=== PATIENT | female | born 1970 | race Caucasian/White ===

== ENCOUNTER 2020-09-23 22:40 | Observation (INO) ==
[2020-09-24] MEDS ORDERED: Nitroglycerin 0.4 MG TAB.SUBL SL PRN (02:59)
[2020-09-24] MEDS ORDERED: Perflutren Lipid Microsphere 1.3 ML in 0.9 % Sodium Chloride 8.7 ML IVP PRN (03:00)
[2020-09-24] MEDS ORDERED: Naloxone 0.4 MG/ML INJ IVP PRN (03:01)
[2020-09-24] MEDS ORDERED: Acetaminophen 325 MG TABLET PO PRN (03:01)
[2020-09-24] MEDS ORDERED: Ondansetron 4 MG/2 ML VIAL IVP PRN (03:01)
[2020-09-24] MEDS ORDERED: Albuterol 2.5 MG/3 ML NEBULIZER IH PRN (03:46)
[2020-09-24 06:07] LABS: Basophils % 0.6 %; Eosinophils # 0.4 K/mcL (0.0-0.6); Eosinophils % 5.7 %; Hematocrit 40.9 % (35.3-44.9); Hemoglobin 12.8 g/dL (11.5-15.4); Immature Granulocytes % 0.3 % (0-4); Lymphocytes # 1.6 K/mcL (0.6-4.6); Lymphocytes % 21.8 %; Mean Corpuscular HGB Conc 31.3 g/dL (31.6-35.5); Mean Corpuscular Hemoglobin 27.9 pg (28.0-33.3); Mean Corpuscular Volume 89.3 fL (83.0-100.0); Mean Platelet Volume 9.3 fL (9.4-12.4); Monocytes # 0.4 K/mcL (0.0-1.3); Monocytes % 5.9 %; Neutrophils # 4.8 K/mcL (1.6-8.9); Platelet Count 219 K/mcL (140-400); Red Blood Count 4.58 M/mcL (3.82-4.97); Red Cell Distribution Width 14.1 % (11.5-14.5); Segmented Neutrophils % 65.7 %; White Blood Count 7.3 K/mcL (4.3-11.1)
[2020-09-24 06:31] LABS: BUN/Creatinine Ratio 30 (6-26); Blood Urea Nitrogen 18 mg/dL (6-20); Calcium 8.8 mg/dL (8.6-10.3); Carbon Dioxide 25 mEq/L (23-29); Chloride 108 mEq/L (98-107); Chol/HDL Ratio 7.8 (0-4.9); Cholesterol 196 mg/dL (< 200); Glucose 97 mg/dL (70-105); HDL Cholesterol 25 mg/dL (40-59); LDL Cholesterol,Calculated 101 mg/dL (< 100); Osmolality,Calculated 292 (280-300); Sodium 140 mEq/L (136-145); Triglycerides 349 mg/dL (< 150); eGFR For African Americans > 60 (> 60); eGFR For Non-African Americans > 60 (> 60)
[2020-09-24] MEDS ORDERED: Aspirin 81 MG TAB.CHEW PO SCH (09:00)
[2020-09-24 11:17] VITALS: BP 122/77
[2020-09-24 11:48] LABS: Estimated Average Glucose 117 mg/dl; Hemoglobin A1C 5.7 %
== END 2020-09-24 13:30 | disposition home or self-care (01) ==
LOC: 3BNU → SUATTDRO 09-24 01:00
PROVIDERS: ADMIT Internal Medicine; ATTEND Internal Medicine